=== PATIENT | female | born 1990 | race Asian ===

== ENCOUNTER 2019-06-01 11:12 | Emergency (ER) | payer OTHER ==
[2019-06-01] MEDS ORDERED: Ondansetron INJ* 2 MG/ML VIAL IV ONE (11:27)
[2019-06-01] MEDS ORDERED: NS 0.9% 1000 ML** 1,000 ML IV ONE (11:27)
[2019-06-01] MEDS ORDERED: Famotidine IV* 10 MG/ML 2 ML (20 mg) IV SLOW PU ONE (11:27)
--- NOTE | 2019-06-01 11:33 | ED ---
Abdominal Pain/Female - HPI Summary HPI Summary: The patient is a 29 y/o F presenting to [facility] with a chief complaint of upper abdominal pain onset this morning at 0700. She reports that she woke up and developed abdominal pain that is worst in the LUQ, and she has developed nausea , 4-5 episodes of vomiting, and 3-4 episodes of watery diarrhea. She states that when the pain is present, it causes her to become dizzy, nauseous, and then vomit. The pain is not alleviated with vomiting. She denies any hematochezia, hematemesis, dysuria, hematuria, fevers, or chills. The aching pain is rated 10/10 in severity. LNMP: last week. She states she traveled last night from [place] by plane. She did not receive the influenza vaccine this year. PMHx: scoliosis with surgery. Nonsmoker, no EtOH, no substance use. Medications reviewed. Allergies noted. - History of Current Complaint Chief Complaint: EDNauseaVomitDiarrh Stated Complaint: FLU LIKE SYMPTOMS PER PT BOYFRIEND Time Seen by Provider: 06/01/19 11:19 Hx Obtained From: Patient ?: No Onset/Duration: Sudden Onset, Lasting Hours - since 0700, Still Present Timing: Constant Severity Initially: Severe Severity Currently: Severe Pain Intensity: 10 Pain Scale Used: 0-10 Numeric Location: Other - upper abdomen, worse in LUQ Radiates: No Character: Other: - aching Aggravating Factor(s): Nothing Alleviating Factor(s): Vomiting Associated Signs and Symptoms: Positive: Dizzy, Nausea, Vomiting, Diarrhea. Negative: Fever, Blood in Stool, Urinary Symptoms, Other: - hematemesis Allergies/Adverse Reactions: Allergies Allergy/AdvReac Type Severity Reaction Status Date / Time No Known Allergies Allergy Verified 06/01/19 11:18 PMH/Surg Hx/FS Hx/Imm Hx Endocrine/Hematology History: Denies: Hx Diabetes Respiratory History: Denies: Hx Asthma Musculoskeletal History: Reports: Hx Scoliosis Sensory History: Denies: Hx Legally Blind, Hx Deafness Opthamlomology History: Denies: Hx Legally Blind EENT History: Denies: Hx Deafness - Surgical History Surgical History: Yes Surgery Procedure, Year, and Place: spinal surgery for scoliosis Infectious Disease History: No Infectious Disease History: Reports: Traveled Outside the [place] in Last 30 Days - [place] - Family History Known Family History: Negative: Diabetes - Social History Alcohol Use: None Hx Substance Use: No Substance Use Type: Reports: None Hx Tobacco Use: No Smoking Status (MU): Never Smoked Tobacco Review of Systems Negative: Fever, Chills Positive: Abdominal Pain, Vomiting, Diarrhea, Nausea. Negative: Other - hematochezia, hematemesis Negative: dysuria, hematuria Neurological: Other - dizziness All Other Systems Reviewed And Are Negative: Yes Physical Exam - Summary Physical Exam Summary: Constitutional: Well-developed, Well-nourished, Alert. (-) Distressed Skin: Warm, Dry HENT: Normocephalic; Atraumatic Eyes: Conjunctiva normal Neck: Musculoskeletal ROM normal neck. (-) JVD, (-) Stridor, (-) Tracheal deviation Cardio: Rhythm regular, rate normal, Heart sounds normal; Intact distal pulses; Radial pulses are 2+ and symmetric. (-) Murmur Pulmonary/Chest wall: Effort normal. (-) Respiratory distress, (-) Wheezes, (-) Rales Abd: Soft, (+) tenderness across the upper abdomen worse in the LUQ, (-) Distension, (-) Guarding, (-) Rebound Musculoskeletal: (-) Edema Lymph: (-) Cervical adenopathy Neuro: Alert, Oriented x3 Psych: Mood and affect Normal Triage Information Reviewed: Yes Vital Signs On Initial Exam: Initial Vitals Temp Pulse Resp BP Pulse Ox 98.7 F 87 19 104/70 99 06/01/19 11:16 06/01/19 11:16 06/01/19 11:16 06/01/19 11:16 06/01/19 11:16 Vital Signs Reviewed: Yes Procedures - Sedation Patient Received Moderate/Deep Sedation with Procedure: No Diagnostics - Vital Signs Vital Signs Temp Pulse Resp BP Pulse Ox 06/01/19 11:16 98.7 F 87 19 104/70 99 - Laboratory Result Diagrams: 06/01/19 11:35 06/01/19 11:35 Lab Statement: Any lab studies that have been ordered have been reviewed, and results considered in the medical decision making process. Re-Evaluation - Re-Evaluation First Eval Re-Evaluation Time: 12:25 Change: Improved Comment: She is feeling better. No tenderness upon re-exam. PO challenge ordered. Second Eval Re-Evaluation Time: 12:50 Change: Improved Comment: Patient able to tolerate PO. We discussed plan for discharge. Abdominal Pain Fem Course/Dx - Course Course Of Treatment: Patient is here with vomiting, diarrhea, left upper quads and abdominal pain. Upon arrival, patient was tender in her upper abdomen but her tenderness went away after IV fluids, Zofran, IV Pepcid. Patient had blood performed which was grossly unremarkable outside of a leukocytosis of 15. Given patient's great improvement with medicine and fluids, bloody to tolerate by mouth, patient was discharged without any imaging. Patient was comfortable with this and was given very strict precautions. - Diagnoses Provider Diagnoses: Vomiting, Diarrhea Discharge ED - Sign-Out/Discharge Documenting (check all that apply): Patient Departure - Patient will be discharged home. - Discharge Plan Condition: Stable Disposition: HOME Prescriptions: Dicyclomine CAP* [Bentyl CAP*] 10 mg PO TID PRN #12 cap PRN Reason: abdominal cramping Ondansetron ODT TAB* [Zofran 4 MG Odt TAB*] 4 mg PO Q8H PRN #8 tab.odt PRN Reason: Vomiting Patient Education Materials: Acute Nausea and Vomiting (ED), Acute Diarrhea (ED ) Referrals: [facility] [Outside] - 3 Days Additional Instructions: Take medications as prescribed. Stay hydrated with Pedialyte. Come back to the emergency department for any severe abdominal pain especially in the right lower side, inability to tolerate any fluids for 12 hours, inability to urinate for 12 hours, or any other concerning symptoms. Follow up with your primary care provider in 1-3 days. - Billing Disposition and Condition Condition: STABLE Disposition: Home - Attestation Statements Document Initiated by Lisandro: Yes Documenting Scribe: Denisse Meng Provider For Whom Lisandro is Documenting (Include Credential): MD Reddy Elliottibe Attestation: Denisse Phipps scribed for Dr. Joisah Husain MD on 06/01/19 at 1537. Scribe Documentation Reviewed: Yes Provider Attestation: The documentation as recorded by the Denisse jane accurately reflects the service I personally performed and the decisions made by me, Dr. Josiah Husain MD Status of Scribe Document: Viewed
[2019-06-01 11:52] LABS: ABS Eosinophils 0.1 10^3/ul (0-0.6); ABS Lymphocytes 0.9 10^3/ul (1.0-4.8); ABS Monocytes 0.5 10^3/ul (0-0.8); Eosinophil % 0.6 %; Hematocrit 42 % (35-47); Hemoglobin 13.9 g/dL (12.0-16.0); Lymphocyte % 5.9 %; Mean Corpuscular HGB Conc 33 g/dL (31-36); Mean Corpuscular Hemoglobin 30 pg (27-31); Mean Corpuscular Volume 92 fL (80-97); Mean Platelet Volume 7.3 fL (7.4-10.4); Platelet Count 309 10^3/uL (150-450); Red Cell Distribution Width 13 % (10-15); White Blood Count 15.5 10^3/uL (3.5-10.8)
[2019-06-01] MEDS ORDERED: Al Hydrox/Mg Hydrox/Simet LIQ* 30 ML UDC PO ONE (11:59)
[2019-06-01 12:10] LABS: Influenza A Molecular NEGATIVE (Negative); Influenza B Molecular NEGATIVE (Negative)
[2019-06-01 12:15] LABS: ALT 11 U/L (7-52); AST 16 U/L (13-39); Albumin 4.1 g/dL (3.2-5.2); Albumin/Globulin Ratio 1.1 (1-3); Alkaline Phosphatase 43 U/L (34-104); Anion Gap 6 mmol/L (2-11); BUN/Creatinine Ratio 18.2 (8-20); Blood Urea Nitrogen 12 mg/dL (6-24); CO2 Carbon Dioxide 24 mmol/L (22-32); Chloride 105 mmol/L (101-111); EGFR Non-African American 107.4 (>60); Globulin 3.6 g/dL (2-4); Glucose 128 mg/dL (70-100); Potassium 4.6 mmol/L (3.5-5.0); Sodium 135 mmol/L (135-145); Total Protein 7.7 g/dL (6.4-8.9)
[2019-06-01 12:22] LABS: HCG Pregnancy < 0.60 mIU/mL
[2019-06-01] MEDS ORDERED: Ondansetron ODT TAB* 4 MG SL PRN (12:27)
[2019-06-01] MEDS ORDERED: Dicyclomine CAP* 10 MG PO ONE (12:27)
[2019-06-01] MEDS ORDERED: Ondansetron ODT TAB* 4 MG SL ONE (13:00)
[2019-06-01 13:04] VITALS: BP 123/78
== END 2019-06-01 13:02 | disposition home or self-care (01) ==
LOC: ED 11:12
DX: R11.10 Vomiting, unspecified (principal); R19.7 Diarrhea, unspecified
CPT/HCPCS: 36415; 80053; 83690; 84702; 85025; 96374; 96375; 99283; A9270-GY; J2405